=== PATIENT | male | born 1995 ===

== ENCOUNTER 2018-02-23 11:17 | Day surgery (SDC) | payer SELFPAY ==
[~2018-02-23] VITALS: Ht 167.6 cm; Wt 74.8 kg
[2018-02-23 11:42] LABS: BASOPHILS # (AUTO) 0.1 10^3/uL (0.0-0.1); BASOPHILS % (AUTO) 1 % (0-10); EOSINOPHILS # (AUTO) 0.2 10^3/uL (0.0-0.3); EOSINOPHILS % (AUTO) 2 % (0-10); HEMATOCRIT 42 % (40-54); HEMOGLOBIN 14.5 G/DL (13.3-17.7); LYMPHOCYTES # (AUTO) 1.9 X 10^3 (1.0-4.0); LYMPHOCYTES % (AUTO) 21 % (12-44); MEAN CORPUSCULAR HEMOGLOBIN 31 PG (25-34); MEAN CORPUSCULAR HGB CONC 35 G/DL (32-36); MEAN CORPUSCULAR VOLUME 89 FL (80-99); MEAN PLATELET VOLUME 10.1 FL (7.4-10.4); MONOCYTES # (AUTO) 0.9 X 10^3 (0.0-1.0); MONOCYTES % (AUTO) 10 % (0-12); NEUTROPHILS % (AUTO) 67 % (42-75); PLATELET COUNT 262 10^3/uL (130-400); RED BLOOD COUNT 4.67 10^6/uL (4.35-5.85); RED CELL DISTRIBUTION WIDTH 13.3 % (10.0-14.5); WHITE BLOOD COUNT 8.9 10^3/uL (4.3-11.0)
[2018-02-23] MEDS ORDERED: IOHEXOL 350 MG/ML 100 ML (OMNIPAQUE 350) VIAL IV ONE (11:45)
[2018-02-23] MEDS ORDERED: NS 250 ML (IVPB) BAG IV ONE (11:45)
[2018-02-23 12:07] LABS: ALANINE AMINOTRANSFERASE 113 U/L (0-55); ALBUMIN 4.3 GM/DL (3.2-4.5); ALKALINE PHOSPHATASE 63 U/L (40-136); AMYLASE 59 U/L (25-125); BILIRUBIN,TOTAL 0.4 MG/DL (0.1-1.0); BUN/CREATININE RATIO 14; CALCIUM 9.6 MG/DL (8.5-10.1); CARBON DIOXIDE 25 MMOL/L (21-32); CHLORIDE 103 MMOL/L (98-107); CREATININE SERUM 0.81 MG/DL (0.60-1.30); GFR ESTIMATED > 60; GLUCOSE 105 MG/DL (70-105); LIPASE 53 U/L (8-78); POTASSIUM 4.4 MMOL/L (3.6-5.0); SODIUM 138 MMOL/L (135-145); TOTAL PROTEIN 7.7 GM/DL (6.4-8.2)
--- NOTE | 2018-02-23 12:37 | ED Abdominal Pain ---
General Chief Complaint: Abdominal/GI Problems Stated Complaint: ABD PAIN Source of Information: Patient Exam Limitations: No Limitations History of Present Illness Date Seen by Provider: Feb 23, 2018 Time Seen by Provider: 11:25 Initial Comments Patient is a 23-year-old male who presents to the emergency room with complaints of epigastric abdominal pain that radiates to his right upper quadrant that started last night around 1700. He also reports nausea which he has taken Rolaids with minimal relief. He reports never having any symptoms like this before. He does not have a primary care provider is recently just moved here from [place]. Timing/Duration: 12-24 Hours Severity/Quality: Sharp Location: Epigastric Radiation: RUQ Activities at Onset: None Modifying Factors: Improves With Antacids Associated Symptoms: Denies Symptoms, Nausea/Vomiting Allergies and Home Medications Allergies Coded Allergies: No Allergy Information Available (Unverified , 02/23/18) Home Medications Oxycodone HCl/Acetaminophen 1 Each Tablet, 1 TAB PO Q4H PRN for PAIN-MODERATE Prescribed by: GEE CASTILLO on 02/23/18 0563 Patient Home Medication List Home Medication List Reviewed: Yes Review of Systems Review of Systems Constitutional: see HPI; No chills, No fever Gastrointestinal: See HPI, Abdominal Pain, Nausea All Other Systems Reviewed Negative Unless Noted: Yes Past Fwmmuil-Loyeyl-Usxkee Hx Past Med/Social Hx: Reviewed Nursing Past Med/Soc Hx Family Medical History Reviewed Nursing Family Hx Physical Exam Vital Signs Vital Signs - First Documented 02/23/18 11:23 Temp 98.5 Pulse 68 Resp 16 B/P (MAP) 136/94 (108) Pulse Ox 100 O2 Delivery Room Air Capillary Refill : Height/Weight/BMI Height: '" Weight: lbs. oz. kg; BMI Method: General Appearance: WD/WN, no apparent distress Neck: non-tender, full range of motion, supple, normal inspection Respiratory: chest non-tender, lungs clear, normal breath sounds, no respiratory distress, no accessory muscle use Cardiovascular: normal peripheral pulses, regular rate, rhythm, no edema, no gallop, no JVD, no murmur Gastrointestinal: normal bowel sounds, soft, no organomegaly, no pulsatile mass , tenderness (Epigastric tenderness and right upper and lower quadrant tenderness.) Neurologic/Psychiatric: alert, normal mood/affect, oriented x 3 Skin: normal color, warm/dry Progress/Results/Core Measures Results/Orders Lab Results Laboratory Tests Test 02/23/18 11:35 02/23/18 12:35 Range/Units White Blood Count 8.9 4.3-11.0 10^3/uL Red Blood Count 4.67 4.35-5.85 10^6/uL Hemoglobin 14.5 13.3-17.7 G/DL Hematocrit 42 40-54 % Mean Corpuscular Volume 89 80-99 FL Mean Corpuscular Hemoglobin 31 25-34 PG Mean Corpuscular Hemoglobin Concent 35 32-36 G/DL Red Cell Distribution Width 13.3 10.0-14.5 % Platelet Count 262 130-400 10^3/uL Mean Platelet Volume 10.1 7.4-10.4 FL Neutrophils (%) (Auto) 67 42-75 % Lymphocytes (%) (Auto) 21 12-44 % Monocytes (%) (Auto) 10 0-12 % Eosinophils (%) (Auto) 2 0-10 % Basophils (%) (Auto) 1 0-10 % Neutrophils # (Auto) 6.0 1.8-7.8 X 10^3 Lymphocytes # (Auto) 1.9 1.0-4.0 X 10^3 Monocytes # (Auto) 0.9 0.0-1.0 X 10^3 Eosinophils # (Auto) 0.2 0.0-0.3 10^3/uL Basophils # (Auto) 0.1 0.0-0.1 10^3/uL Sodium Level 138 135-145 MMOL/L Potassium Level 4.4 3.6-5.0 MMOL/L Chloride Level 103 98-107 MMOL/L Carbon Dioxide Level 25 21-32 MMOL/L Anion Gap 10 5-14 MMOL/L Blood Urea Nitrogen 11 7-18 MG/DL Creatinine 0.81 0.60-1.30 MG/DL Estimat Glomerular Filtration Rate > 60 BUN/Creatinine Ratio 14 Glucose Level 105 70-105 MG/DL Calcium Level 9.6 8.5-10.1 MG/DL Corrected Calcium 9.4 8.5-10.1 MG/DL Total Bilirubin 0.4 0.1-1.0 MG/DL Aspartate Amino Transf (AST/SGOT) 67 H 5-34 U/L Alanine Aminotransferase (ALT/SGPT) 113 H 0-55 U/L Alkaline Phosphatase 63 40-136 U/L Total Protein 7.7 6.4-8.2 GM/DL Albumin 4.3 3.2-4.5 GM/DL Amylase Level 59 25-125 U/L Lipase 53 8-78 U/L Urine Color YELLOW Urine Clarity CLEAR Urine pH 7 5-9 Urine Specific Harlan 1.005 L 1.016-1.022 Urine Protein NEGATIVE NEGATIVE Urine Glucose (UA) NEGATIVE NEGATIVE Urine Ketones NEGATIVE NEGATIVE Urine Nitrite NEGATIVE NEGATIVE Urine Bilirubin NEGATIVE NEGATIVE Urine Urobilinogen NORMAL NORMAL MG/DL Urine Leukocyte Esterase NEGATIVE NEGATIVE Urine RBC (Auto) NEGATIVE NEGATIVE Urine RBC NONE /HPF Urine WBC NONE /HPF Urine Squamous Epithelial Cells RARE /HPF Urine Crystals NONE /LPF Urine Bacteria NEGATIVE /HPF Urine Casts NONE /LPF Urine Mucus NEGATIVE /LPF Urine Culture Indicated NO My Orders Orders - ROYA DOS SANTOS Comprehensive Metabolic Panel (02/23/18 11:30) Lipase (02/23/18 11:30) Amylase (02/23/18 11:30) Ua Culture If Indicated (02/23/18 11:30) Saline Lock/Iv-Start (02/23/18 11:30) Cbc With Automated Diff (02/23/18 11:30) Ct Abdomen/Pelvis W (02/23/18 11:30) Iohexol Injection (Omnipaque 350 Mg/Ml 1 (02/23/18 11:45) Ns (Ivpb) (Sodium Chloride 0.9%) (02/23/18 11:45) Pharmacy Communication (Pharmacy Communi (02/23/18 11:39) Lactated Ringers (Lr 1000 Ml Iv Solution (02/23/18 13:24) Bupivacaine 0.5% W/Epi Inj (Sensorcaine (02/23/18 13:26) Medications Given in ED Current Medications Medications Dose Ordered Sig/William Route Start Time Stop Time Status Last Admin Dose Admin Bupivacaine HCl/ Epinephrine Bitart 30 ml STK-MED ONCE .ROUTE 02/23/18 13:26 02/23/18 13:31 DC 02/23/18 14:39 30 ML Lactated Ringer's 1,000 ml @ ud STK-MED ONCE IV 02/23/18 13:24 02/23/18 13:30 DC 02/23/18 13:35 0 MLS/HR Vital Signs/I&O 10/8/18 11:23 Temp 98.5 Pulse 68 Resp 16 B/P (MAP) 136/94 (108) Pulse Ox 100 O2 Delivery Room Air Progress Progress Note : Time: 13:01 Progress Note I have seen and evaluated the patient. I've informed him of his CT findings. I have spoke to Dr. Castillo at this time and she agrees to take the patient to OR for acute appendicitis. Diagnostic Imaging Diagonstic Imaging: CT Plain Films/CT/US/NM/MRI: abdomen, pelvis Comments VIA [place], [place] NAME: TERE CLAYTON [facility] REC#: [id number] PT STATUS: REG ER : 1995 PHYSICIAN: ROYA DOS SANTOS ADMIT DATE: 02/23/18/ER Draft Date of Exam:02/23/18 CT ABDOMEN/PELVIS W PROCEDURE: CT abdomen and pelvis with contrast. TECHNIQUE: Multiple contiguous axial images were obtained through the abdomen and pelvis after administration of intravenous contrast. INDICATION: Abdominal pain and nausea. FINDINGS: There may be a small hiatal hernia. Low density is seen in the liver suggesting possible fatty infiltration. No focal hepatic or splenic abnormality is identified. Gallbladder and pancreas are also unremarkable. There is an approximately 1 cm low-density nodule in the right adrenal gland, which may represent adrenal gland adenoma. The kidneys have a normal appearance. There is no free fluid within the abdomen or pelvis. There is edema and/or inflammation surrounding the appendix. There is also diffuse mural thickening involving the urinary bladder. No organized fluid collection is seen to indicate abscess. There is no evidence of pneumoperitoneum. IMPRESSION: Findings are consistent with acute appendicitis in the right lower quadrant without periappendiceal abscess. Additional incidental findings include small hiatal hernia, probable fatty infiltration of the liver, and right adrenal gland adenoma. Dictated on workstation # [id number] Dict: 02/23/18 1246 Trans: 02/23/18 1250 [id number] Interpreted by: SUDEEP FU MD Electronically signed by: Departure Communication (Admissions) Time/Spoke to Admitting Phy: 13:02 Dr. Castillo. Impression Primary Impression: Acute appendicitis Disposition: ADMITTED INPATIENT Condition: Stable/Unchanged Admissions Decision to Admit Reason: Admit from ER (General) Decision to Admit/Date: Feb 23, 2018 Time/Decision to Admit Time: 13:03 Departure-Patient Inst. Referrals: UNKNOWN (PCP) Primary Care Physician Scripts Oxycodone HCl/Acetaminophen (Percocet 5-325 mg Tablet) 1 Each Tablet 1 TAB PO Q4H PRN for PAIN-MODERATE MDD 6, #30 TAB Prov: GEE CASTILLO MD 02/23/18 ROYA DOS SANTOS Feb 23, 2018 12:37
[2018-02-23 12:48] LABS: BILIRUBIN,URINE NEGATIVE (NEGATIVE); CLARITY,URINE CLEAR; COLOR,URINE YELLOW; GLUCOSE, URINE (UA) NEGATIVE (NEGATIVE); KETONES,URINE NEGATIVE (NEGATIVE); LEUKOCYTE ESTERASE ,URINE NEGATIVE (NEGATIVE); NITRITE,URINE NEGATIVE (NEGATIVE); PH,URINE 7 (5-9); PROTEIN,URINE NEGATIVE (NEGATIVE); UROBILINOGEN,URINE NORMAL (NORMAL)
--- NOTE | 2018-02-23 12:51 | Diagnostic Imaging Report ---
PROCEDURE: CT abdomen and pelvis with contrast. TECHNIQUE: Multiple contiguous axial images were obtained through the abdomen and pelvis after administration of intravenous contrast. INDICATION: Abdominal pain and nausea. FINDINGS: There may be a small hiatal hernia. Low density is seen in the liver suggesting possible fatty infiltration. No focal hepatic or splenic abnormality is identified. Gallbladder and pancreas are also unremarkable. There is an approximately 1 cm low-density nodule in the right adrenal gland, which may represent adrenal gland adenoma. The kidneys have a normal appearance. There is no free fluid within the abdomen or pelvis. There is edema and/or inflammation surrounding the appendix. There is also diffuse mural thickening involving the urinary bladder. No organized fluid collection is seen to indicate abscess. There is no evidence of pneumoperitoneum. IMPRESSION: Findings are consistent with acute appendicitis in the right lower quadrant without periappendiceal abscess. Additional incidental findings include small hiatal hernia, probable fatty infiltration of the liver, and right adrenal gland adenoma. Dictated by: Dictated on workstation # [id number]
[2018-02-23 13:13] LABS: BACTERIA,URINE NEGATIVE /HPF; SQUAMOUS EPITHELIAL CELL,UR RARE /HPF
[2018-02-23] MEDS ORDERED: LACTATED RINGERS 1,000 ML IV ONE (13:24)
[2018-02-23] MEDS ORDERED: BUP/EPI 0.5% 1:200,000 (SENSORCAINE) 30 ML VIAL ONE (13:26)
[2018-02-23] MEDS ORDERED: MIDAZOLAM 2 MG/2 ML (VERSED) VIAL ONE (14:17)
[2018-02-23] MEDS ORDERED: fentaNYL INJECTION 100 MCG/2 ML AMP ONE ×2 (14:19→15:21)
[2018-02-23] MEDS ORDERED: metroNIDAZOLE 500MG/100ML IVPB 100 ML ONE (14:28)
[2018-02-23] MEDS ORDERED: ceFAZolin 1,000 MG/10 ML (ANCEF) VIAL ONE (14:28)
[2018-02-23] MEDS ORDERED: ceFAZolin INJECTION 1,000 MG in NS (IVPB) 50 ML IV ONE (14:30)
[2018-02-23] MEDS ORDERED: metroNIDAZOLE 500MG/100ML IVPB 100 ML IV ONE (14:30)
--- NOTE | 2018-02-23 14:36 | History & Physicial ---
History of Present Illness History of Present Illness Reason for visit/HPI Central abdominal pain localizing to the right lower quadrant over a 24-hour period. Clinical examination and CT have confirmed acute appendicitis Date of Admission 02/23/18 Date Seen by a Provider: Feb 23, 2018 Time Seen by a Provider: 13:20 I consulted on this patient on 02/23/18 14:34 Attending Physician Gee Castillo MD Admitting Physician No,Local Physician Consult Allergies and Home Medications Allergies Coded Allergies: No Allergy Information Available (Unverified , 02/23/18) Patient Home Medication List Home Medication List Reviewed: Yes Past Jlaexqa-Ssptzg-Jrywoi Hx Patient Social History Marrital Status: single Employed/Student: unemployed Alcohol Use: Denies Use Recreational Drug Use: Yes (THC) Smoking Status: Current Everyday Smoker Type Used: Cigarettes 2nd Hand Smoke Exposure: Yes Recent Foreign Travel: No Contact w/other who traveled: No Recent Infectious Disease Expo: No Surgeries No Respiratory No Cardiovascular No Neurological No Reproductive System Hx Reproductive Disorders: No Gastrointestinal No Musculoskeletal No Endocrine History of Endocrine Disorders: No HEENT History of HEENT Disorders: No Review of Systems Constitutional: malaise EENTM: no symptoms reported Respiratory: no symptoms reported Cardiovascular: no symptoms reported Gastrointestinal: see HPI Genitourinary: no symptoms reported Musculoskeletal: no symptoms reported Skin: no symptoms reported Psychiatric/Neurological: No Symptoms Reported Physical Exam Vital Signs Vital Signs - First Documented 02/23/18 11:23 Temp 98.5 Pulse 68 Resp 16 B/P (MAP) 136/94 (108) Pulse Ox 100 O2 Delivery Room Air Capillary Refill : Less Than 3 Seconds Height, Weight, BMI Height: 5'6.00" Weight: 165lbs. oz. 74.218415ng; BMI Method:Stated General Appearance: Anxious Neck: Full Range of Motion Respiratory: Lungs Clear Cardiovascular: Regular Rate, Rhythm Gastrointestinal: Tenderness Extremity: Normal Inspection Neurologic/Psychiatric: Oriented x3 Skin: Warm/Dry Comments Severe tenderness over the right lower quadrant consistent with acute appendicitis Assessment/Plan Assessment and Plan Young man with acute appendicitis. Offered laparoscopic appendectomy and review the procedure in detail Admission Diagnosis Admission Status: Other (Outpt Proc) GEE CASTILLO MD Feb 23, 2018 14:36
--- NOTE | 2018-02-23 14:37 | Progress Note-Pre Operative ---
Pre-Operative Progress Note H&P Reviewed The H&P was reviewed, patient examined and no changes noted. Date Seen by Provider: Feb 23, 2018 Time Seen by Provider: 13:20 Date H&P Reviewed: Feb 23, 2018 Time H&P Reviewed: 14:37 Pre-Operative Diagnosis: Acute appendicitis GEE CASTILLO MD Feb 23, 2018 14:37
[2018-02-23] MEDS ORDERED: LACTATED RINGERS 1,000 ML IV PRN (15:19)
[2018-02-23] MEDS ORDERED: ROCURONIUM 10 MG/ML 5 ML SYRINGE IV ONE (15:20)
[2018-02-23] MEDS ORDERED: LIDOCAINE PF 2% 2 ML (XYLOCAINE) VIAL ONE (15:20)
[2018-02-23] MEDS ORDERED: SEVOFLURANE (ULTANE) 15 ML INHAL SOLN ONE (15:20)
[2018-02-23] MEDS ORDERED: proPOfol 200 MG/20 ML (DIPRIVAN) VIAL IV ONE (15:20)
[2018-02-23] MEDS ORDERED: GLYCOPYRROLATE 0.2 MG/ML (ROBINUL) 2 ML VIAL ONE (15:20)
[2018-02-23] MEDS ORDERED: NEOSTIGMINE 1 MG/ML 5 ML SYRINGE ONE (15:20)
[2018-02-23] MEDS ORDERED: OXYC1TAB87 PO (15:33)
--- NOTE | 2018-02-23 15:33 | Operative Report ---
Operative Report Date of Procedure/Surgery Feb 23, 2018 Surgeon (s) GEE CASTILLO MD Cans Vacuum Tester (s): Jony Juarez (Med Student III) Post-Operative Diagnosis Acute retrocecal appendicitis Procedure Performed Laparoscopic appendectomy Description of Procedure Anesthesia Type: General Estimated blood loss (mL): Minimal Specimen(s) collected/removed Appendix Description of the Procedure Indication for the procedure: This gentleman presented with clinical and radiologic features of acute appendicitis. He was offered prompt laparoscopic appendectomy. Informed consent was obtained after reviewing the operative details and complications of wound infection and intra-abdominal abscess. Description of procedure: He was placed supine on the operative table and general anesthesia induced. A gram of Ancef and 500 mg of Flagyl were administered intravenously as prophylaxis against wound infection. Sequential compression devices were placed around his legs, to minimize the risk of venous thrombosis. Abdomen was prepared and draped in the usual sterile manner. A supraumbilical incision was made and the linea alba incised vertically. A Acevedo cannula was placed and carbon dioxide insufflated, to an intra-abdominal pressure of 15 mmHg. Anatomy was visualized using a 30 laparoscope. Omentum was wrapped around the right lower quadrant, obscuring the appendix initially. Under direct view, I placed a 5 mm trocar over the right upper quadrant, followed by a 12 mm trocar over the left lower quadrant. The patient was then turned into Trendelenburg position, with the right side tilted up. Ileocecal junction was mobilized using Harmonic scalpel, displaying an acutely inflamed and elongated appendix in a retrocecal position. Meso- appendix was controlled using Harmonic scalpel and appendectomy completed using an Endo RIANNA, 2.5 mm vascular stapler. The area was then irrigated with saline and the appendix placed in Endo Catch bag, being removed via the supraumbilical trocar site. The fascia over this incision and one over the left lower quadrant were closed using #1 Vicryl. Skin incisions were closed using 4-0 Vicryl, in a similar fashion. He tolerated procedure well, was extubated in the operative room and taken to the recovery room in a stable condition. Findings of the Procedure see op report Allergies and Home Medications Allergies Coded Allergies: No Allergy Information Available (Unverified , 02/23/18) Patient Home Medication List Home Medication List Reviewed: Yes GEE CASTILLO MD Feb 23, 2018 15:33
--- NOTE | 2018-02-23 15:34 | Discharge Inst-Simple/Standard ---
Discharge Inst-Standard Discharge Medications New, Converted or Re-Newed RX: RX on Chart Patient Instructions/Follow Up Plan of Care/Instructions/FU: Band-Aids off in 48 hours. Follow-up in a week Activity as Tolerated: Yes Discharge Diet: No Restrictions GEE CASTILLO MD Feb 23, 2018 15:34
[2018-02-23] MEDS ORDERED: morphine INJ 10 MG/ML 1ML (SYR OR VIAL) ONE (15:59)
[2018-02-23] MEDS ORDERED: ONDANSETRON 4 MG/2 ML (SDV) Z0FRAN IVP PRN (16:00)
[2018-02-23] MEDS ORDERED: HYDROmorphone 2 MG/ML VIAL (DILAUDID) IV ONE (16:00)
[2018-02-23] MEDS ORDERED: morphine INJ 10 MG/ML 1ML (SYR OR VIAL) IVP ONE (16:00)
[2018-02-23 16:55] VITALS: BP 144/85
--- NOTE | 2018-02-23 17:41 | Anesthesia-General Post-Op ---
General Patient Condition Mental Status/LOC: Same as Preop Cardiovascular: Satisfactory Nausea/Vomiting: Absent Respiratory: Satisfactory Pain: Controlled Complications: Absent Post Op Complications Complications None Follow Up Care/Instructions Patient Instructions None needed. Anesthesia/Patient Condition Patient Condition Patient is doing well, no complaints, stable vital signs, no apparent adverse anesthesia problems. No complications reported per nursing. FAHAD THOMPSON CRNA Feb 23, 2018 17:41
[2018-02-23 17:45] VITALS: BP 155/91
[2018-02-23] MEDS ORDERED: oxyCODONE/APAP 5/325MG (PERCOCET 5) TABLET PO PRN (17:45)
[2018-02-23 18:30] VITALS: BP 137/87
[2018-02-23 18:55] VITALS: BP 137/87
== END 2018-02-23 18:55 | disposition home or self-care (01) ==
LOC: ER 11:19 → SDC 13:37
PROVIDERS: ATTEND Surgery
DX: K35.80 Unspecified acute appendicitis (principal); F17.210 Nicotine dependence, cigarettes, uncomplicated
CPT/HCPCS: 36415; 74177; 80053; 81000; 82150; 83690; 85025; 94664

== ENCOUNTER 2018-04-08 19:40 | Emergency (ER) | payer SELFPAY ==
[~2018-04-08] VITALS: Ht 170.2 cm; Wt 83.9 kg
[~2018-04-08 19:40] MED LIST: OXYC1TAB87 PO
[2018-04-08] MEDS: ACETAMINOPHEN 500 MG TAB (TYLENOL) PO ONE (20:13)
[2018-04-08 20:14] LABS: BASOPHILS % (AUTO) 0 % (0-10); EOSINOPHILS % (AUTO) 0 % (0-10); HEMATOCRIT 39 % (40-54); HEMOGLOBIN 13.6 G/DL (13.3-17.7); LYMPHOCYTES # (AUTO) 1.1 X 10^3 (1.0-4.0); LYMPHOCYTES % (AUTO) 6 % (12-44); MEAN CORPUSCULAR HEMOGLOBIN 30 PG (25-34); MEAN CORPUSCULAR HGB CONC 35 G/DL (32-36); MEAN CORPUSCULAR VOLUME 87 FL (80-99); MEAN PLATELET VOLUME 9.4 FL (7.4-10.4); MONOCYTES # (AUTO) 0.8 X 10^3 (0.0-1.0); MONOCYTES % (AUTO) 4 % (0-12); NEUTROPHILS # (AUTO) 17.4 X 10^3 (1.8-7.8); NEUTROPHILS % (AUTO) 90 % (42-75); PLATELET COUNT 315 10^3/uL (130-400); RED BLOOD COUNT 4.52 10^6/uL (4.35-5.85); RED CELL DISTRIBUTION WIDTH 12.9 % (10.0-14.5); WHITE BLOOD COUNT 19.3 10^3/uL (4.3-11.0)
[2018-04-08] MEDS: NS IV 1000 ML 1,000 ML IV SCH (20:15)
[2018-04-08] MEDS: IBUPROFEN 800 MG (MOTRIN) TAB PO ONE (20:15)
--- NOTE | 2018-04-08 20:23 | Diagnostic Imaging Report ---
INDICATION: Fever and shortness of air. EXAMINATION: Single-view chest dated 04/08/2018. FINDINGS: The cardiomediastinal silhouette is unremarkable. The pulmonary vasculature is within normal limits. The lungs and pleural spaces are clear. IMPRESSION: No evidence of an acute cardiopulmonary process. Dictated by: Dictated on workstation # [id number]
[2018-04-08 20:33] LABS: BAND NEUTROPHILS 12 %; BASOPHILS % (MANUAL) 0 %; EOSINOPHILS % (MANUAL) 0 %; LYMPHOCYTES % (MANUAL) 9 %; MONOCYTES % (MANUAL) 7 %; NEUTROPHILS % (MANUAL) 72 %
[2018-04-08 20:34] LABS: RBC MORPH NORMAL
[2018-04-08 20:47] LABS: BILIRUBIN,URINE NEGATIVE (NEGATIVE); CLARITY,URINE CLEAR; COLOR,URINE YELLOW; GLUCOSE, URINE (UA) NEGATIVE (NEGATIVE); KETONES,URINE NEGATIVE (NEGATIVE); LEUKOCYTE ESTERASE ,URINE NEGATIVE (NEGATIVE); NITRITE,URINE NEGATIVE (NEGATIVE); PH,URINE 8 (5-9); PROTEIN,URINE NEGATIVE (NEGATIVE); UROBILINOGEN,URINE NORMAL (NORMAL)
[2018-04-08 20:50] LABS: ALANINE AMINOTRANSFERASE 34 U/L (0-55); ALBUMIN 4.3 GM/DL (3.2-4.5); ALKALINE PHOSPHATASE 73 U/L (40-136); BILIRUBIN,TOTAL 0.6 MG/DL (0.1-1.0); BUN/CREATININE RATIO 12; CALCIUM 9.4 MG/DL (8.5-10.1); CARBON DIOXIDE 23 MMOL/L (21-32); CHLORIDE 103 MMOL/L (98-107); GFR ESTIMATED > 60; GLUCOSE 120 MG/DL (70-105); POTASSIUM 3.9 MMOL/L (3.6-5.0); SODIUM 139 MMOL/L (135-145); TOTAL PROTEIN 7.4 GM/DL (6.4-8.2)
[2018-04-08 20:55] LABS: SQUAMOUS EPITHELIAL CELL,UR RARE /HPF
[2018-04-08] MEDS ORDERED: AZIT250T PO (21:20)
[2018-04-08] MEDS ORDERED: LEVO500T2 PO (21:20)
--- NOTE | 2018-04-08 21:21 | ED General ---
General Chief Complaint: General Problems/Pain Stated Complaint: FEVER,SOB Nursing Triage Note: pt states he began to develope a non productive cough and chills this afternoon at work. presents to the ED ambulatory, running a low grade fever of 100.5 Nursing Sepsis Screen: Possible Sepsis Risk Source of Information: Patient Exam Limitations: No Limitations History of Present Illness Date Seen by Provider: Apr 08, 2018 Time Seen by Provider: 20:10 Initial Comments Patient is a 23-year-old male who presents to the emergency room with complaints of a nonproductive cough and chills that started this evening while at work. He also reports mild shortness of breath he does have a low-grade fever on arrival to the emergency room 100.5. Timing/Duration: 1-3 Hours Associated Systoms: Cough, Fever/Chills, Shortness of Air Allergies and Home Medications Allergies Coded Allergies: No Allergy Information Available (Unverified , 02/23/18) Home Medications Azithromycin 250 Mg Tablet, 250 MG PO UD TAKE 2 TABLETS TODAY, THEN TAKE 1 TABLET DAILY FOR 4 MORE DAYS Prescribed by: ROYA DOS SANTOS on 04/08/182119 Levofloxacin 500 Mg Tablet, 500 MG PO DAILY Prescribed by: ROYA DOS SANTOS on 04/08/182119 Oxycodone HCl/Acetaminophen 1 Each Tablet, 1 TAB PO Q4H PRN for PAIN-MODERATE Prescribed by: GEE CASTILLO on 02/23/18 1533 Patient Home Medication List Home Medication List Reviewed: Yes Review of Systems Review of Systems Constitutional: see HPI, chills, fever Respiratory: see HPI, cough, short of breath All Other Systems Reviewed Negative Unless Noted: Yes Past Jhyyaam-Jxbvch-Xfyyek Hx Patient Social History Type Used: Cigarettes 2nd Hand Smoke Exposure: Yes Recent Foreign Travel: No Contact w/Someone Who Travel: No Recent Infectious Disease Expo: No Recent Hopitalizations: Yes (APPENDECTOMY IN FEB OF THIS YEAR) Past Medical History Surgeries: No Appendectomy Respiratory: No Cardiac: No Neurological: No Reproductive Disorders: No Genitourinary: No Gastrointestinal: No Musculoskeletal: No Endocrine: No HEENT: No Cancer: No Psychosocial: No Integumentary: No Physical Exam Vital Signs Vital Signs - First Documented 04/08/18 19:49 Temp 100.5 Pulse 97 Resp 20 B/P (MAP) 137/73 (94) Pulse Ox 98 O2 Delivery Room Air Capillary Refill : Less Than 3 Seconds Height, Weight, BMI Height: 5'7.00" Weight: 185lbs. oz. 83.217936ix; BMI Method:Stated General Appearance: No Apparent Distress, WD/WN Eyes: Bilateral Eye Normal Inspection, Bilateral Eye PERRL, Bilateral Eye EOMI HEENT: PERRL/EOMI, TMs Normal, Normal ENT Inspection, Pharynx Normal Neck: Full Range of Motion, Normal Inspection, Non Tender, Supple, Other (no nuchal rigidity) Respiratory: Chest Non Tender, Lungs Clear, Normal Breath Sounds, No Accessory Muscle Use, No Respiratory Distress Cardiovascular: Regular Rate, Rhythm, No Edema, No Gallop, No JVD, No Murmur, Normal Peripheral Pulses Gastrointestinal: Normal Bowel Sounds, No Organomegaly, No Pulsatile Mass, Non Tender, Soft Extremity: Normal Capillary Refill, Normal Inspection, Normal Range of Motion, Non Tender, No Calf Tenderness, No Pedal Edema Neurologic/Psychiatric: Alert, Oriented x3, Normal Mood/Affect Skin: Normal Color, Warm/Dry Focused Exam Lactate Level 04/08/18 19:59: Lactic Acid Level 1.47 Lactic Acid Level Laboratory Tests Test 04/08/18 19:59 Lactic Acid Level 1.47 MMOL/L (0.50-2.00) Progress/Results/Core Measures Suspected Sepsis Recent Fever Within 48 Hours: Yes Infection Criteria Present: Suspected New Infection New/Unexplained Altered Menta: No Sepsis Screen: Possible Sepsis Risk SIRS Temperature:100.5 Pulse: 103 Respiratory Rate: 20 Laboratory Tests 04/08/18 19:59: White Blood Count 19.3H Blood Pressure 121 /74 Mean: 90 04/08/18 19:59: Lactic Acid Level 1.47 Laboratory Tests 04/08/18 19:59: Creatinine 0.90, Platelet Count 315, Total Bilirubin 0.6 Results/Orders Lab Results Laboratory Tests Test 04/08/18 19:49 04/08/18 19:57 04/08/18 19:59 04/08/18 20:48 Range/Units Urine Color YELLOW Urine Clarity CLEAR Urine pH 8 5-9 Urine Specific [place] 1.010 L 1.016-1.022 Urine Protein NEGATIVE NEGATIVE Urine Glucose (UA) NEGATIVE NEGATIVE Urine Ketones NEGATIVE NEGATIVE Urine Nitrite NEGATIVE NEGATIVE Urine Bilirubin NEGATIVE NEGATIVE Urine Urobilinogen NORMAL NORMAL MG/DL Urine Leukocyte Esterase NEGATIVE NEGATIVE Urine RBC (Auto) NEGATIVE NEGATIVE Urine RBC NONE /HPF Urine WBC NONE /HPF Urine Squamous Epithelial Cells RARE /HPF Urine Crystals NONE /LPF Urine Bacteria NONE /HPF Urine Casts NONE /LPF Urine Mucus NEGATIVE /LPF Urine Culture Indicated NO Monoscreen NEGATIVE NEGATIVE White Blood Count 19.3 H 4.3-11.0 10^3/uL Red Blood Count 4.52 4.35-5.85 10^6/uL Hemoglobin 13.6 13.3-17.7 G/DL Hematocrit 39 L 40-54 % Mean Corpuscular Volume 87 80-99 FL Mean Corpuscular Hemoglobin 30 25-34 PG Mean Corpuscular Hemoglobin Concent 35 32-36 G/DL Red Cell Distribution Width 12.9 10.0-14.5 % Platelet Count 315 130-400 10^3/uL Mean Platelet Volume 9.4 7.4-10.4 FL Neutrophils (%) (Auto) 90 H 42-75 % Lymphocytes (%) (Auto) 6 L 12-44 % Monocytes (%) (Auto) 4 0-12 % Eosinophils (%) (Auto) 0 0-10 % Basophils (%) (Auto) 0 0-10 % Neutrophils # (Auto) 17.4 H 1.8-7.8 X 10^3 Lymphocytes # (Auto) 1.1 1.0-4.0 X 10^3 Monocytes # (Auto) 0.8 0.0-1.0 X 10^3 Eosinophils # (Auto) 0.0 0.0-0.3 10^3/uL Basophils # (Auto) 0.0 0.0-0.1 10^3/uL Neutrophils % (Manual) 72 % Lymphocytes % (Manual) 9 % Monocytes % (Manual) 7 % Eosinophils % (Manual) 0 % Basophils % (Manual) 0 % Band Neutrophils 12 % Blood Morphology Comment NORMAL Sodium Level 139 135-145 MMOL/L Potassium Level 3.9 3.6-5.0 MMOL/L Chloride Level 103 98-107 MMOL/L Carbon Dioxide Level 23 21-32 MMOL/L Anion Gap 13 5-14 MMOL/L Blood Urea Nitrogen 11 7-18 MG/DL Creatinine 0.90 0.60-1.30 MG/DL Estimat Glomerular Filtration Rate > 60 BUN/Creatinine Ratio 12 Glucose Level 120 H 70-105 MG/DL Lactic Acid Level 1.47 0.50-2.00 MMOL/L Calcium Level 9.4 8.5-10.1 MG/DL Corrected Calcium 9.2 8.5-10.1 MG/DL Total Bilirubin 0.6 0.1-1.0 MG/DL Aspartate Amino Transf (AST/SGOT) 32 5-34 U/L Alanine Aminotransferase (ALT/SGPT) 34 0-55 U/L Alkaline Phosphatase 73 40-136 U/L Total Protein 7.4 6.4-8.2 GM/DL Albumin 4.3 3.2-4.5 GM/DL Group A Streptococcus Screen NEGATIVE NEGATIVE Micro Results Microbiology 04/08/18 Influenza Types A,B Antigen ([facility]) - Final, Complete My Orders Orders - ROYA DOS SANTOS Iv 1000 Ml (Sodium Chloride 0.9%) (04/08/18 20:15) Ibuprofen Tablet (Motrin Tablet) (04/08/18 20:15) Acetaminophen Tablet (Tylenol Tablet) (04/08/18 20:15) Influenza A And B Antigens (04/08/18 20:01) Cbc With Automated Diff (04/08/18 20:01) Comprehensive Metabolic Panel (04/08/18 20:01) Chest 1 View, Ap/Pa Only (04/08/18 20:01) Manual Differential (04/08/18 19:59) Blood Culture (04/08/18 20:23) Lactic Acid Analyzer (04/08/18 20:23) Ua Culture If Indicated (04/08/18 20:32) Monotest (04/08/18 20:33) Rapid Strep A Screen (04/08/18 20:42) Ceftriaxone For Iv Use (Rocephin For I (04/08/18 21:15) Rx-Levofloxacin (Rx-Levaquin) (04/08/18 21:13) Medications Given in ED Current Medications Medications Dose Ordered Sig/William Route Start Time Stop Time Status Last Admin Dose Admin Acetaminophen 1,000 mg ONCE ONCE PO 04/08/18 20:15 04/08/18 20:16 DC 04/08/18 20:13 1,000 MG Ceftriaxone Sodium 1000 mg/ Sodium Chloride 50 ml @ 100 mls/hr ONCE ONCE IV 04/08/18 21:15 04/08/18 21:44 DC 04/08/18 21:23 100 MLS/HR Ibuprofen 800 mg ONCE ONCE PO 04/08/18 20:15 04/08/18 20:16 DC 04/08/18 20:15 800 MG Vital Signs/I&O 04/08/18 04/08/18 04/08/18 19:49 20:13 20:30 Temp 100.5 100.5 100.5 Pulse 97 103 Resp 20 20 B/P (MAP) 137/73 (94) 121/74 Pulse Ox 98 98 O2 Delivery Room Air Room Air Capillary Refill : Less Than 3 Seconds Blood Pressure Mean: 90 Progress Note : Time: 21:25 Progress Note I have discussed the case with Dr. Bean [place] and they agree with plan of care. The patient is feeling much better after Tylenol and ibuprofen administration and IV fluids. His pain has resolved. His fever has broken. The patient reports that he has low income will not be able to afford his medications very well. I will put him on Levaquin as we have an Rx take home pack available and all pharmacies will be closed tomorrow for the holiday. I will be giving him a dose of IV Rocephin here. And then to start a Z-Jarad on Friday when the pharmacies reopen. Patient agrees with plan of care, plans for discharge, return precautions were given. Diagnostic Imaging Diagonstic Imaging: Xray Plain Films/CT/US/NM/MRI: chest Comments NAME: TERE CLAYTON MED REC#: [id number] PT STATUS: REG ER : 1995 PHYSICIAN: ROYA DOS SANTOS ADMIT DATE: 04/08/18/ER Signed Date of Exam: 04/08/18 CHEST 1 VIEW, AP/PA ONLY INDICATION: Fever and shortness of air. EXAMINATION: Single-view chest dated 04/08/2018. FINDINGS: The cardiomediastinal silhouette is unremarkable. The pulmonary vasculature is within normal limits. The lungs and pleural spaces are clear. IMPRESSION: No evidence of an acute cardiopulmonary process. Dictated by: Dictated on workstation # [id number] Dict: 04/08/182018 Trans: 04/08/182055 Interpreted by: SCOTT SHOEMAKER MD Electronically signed by: SCOTT SHOEMAKER MD 04/08/182055 Departure Impression Primary Impression: Community acquired pneumonia Disposition: 01 HOME, SELF-CARE Condition: Stable/Unchanged Departure-Patient Inst. Decision time for Depature: 21:18 Referrals: NO,LOCAL PHYSICIAN (PCP/Family) Primary Care Physician Patient Instructions: Community-Acquired Pneumonia in Adults, LOCAL PHYSICIAN LIST Add. Discharge Instructions: Take medications as directed. Ibuprofen and Tylenol as directed by the bottle for pain and fever relief. Return back to the emergency room for any worsening symptoms or concerns as needed. Follow-up with a primary care provider within 1 week for recheck. All discharge instructions reviewed with patient and/or family. Voiced understanding. Scripts Azithromycin (Zithromax) 250 Mg Tablet 250 MG PO UD, #6 TAB TAKE 2 TABLETS TODAY, THEN TAKE 1 TABLET DAILY FOR 4 MORE DAYS Prov: ROYA DOS SANTOS 04/08/18 Levofloxacin (Levaquin) 500 Mg Tablet 500 MG PO DAILY for 6 Days, #6 TAB Prov: ROYA DOS SANTOS 04/08/18 ROYA DOS SANTOS Apr 08, 2018 21:21
[2018-04-08] MEDS: cefTRIAXone FOR IV USE 1,000 MG in NS (IVPB) 50 ML IV ONE (21:23)
[2018-04-08 21:52] VITALS: BP 121/74
[2018-04-08] MEDS: RX-LEVOFLOXACIN 500 MG (LEVAQUIN) TAB #1 PPK PO STA (21:52)
== END 2018-04-08 21:52 | disposition home or self-care (01) ==
LOC: EDUNIT# 19:40 → ER 19:41
DX: J18.9 Pneumonia, unspecified organism (principal); Z77.22 Contact with and (suspected) exposure to environmental tobacco smoke (acute) (chronic); Z90.49 Acquired absence of other specified parts of digestive tract
CPT/HCPCS: 36415; 71045; 80053; 81000; 83605; 85007; 85027; 86308; 87040; 87430; 87804

== ENCOUNTER 2018-04-17 21:07 | Emergency (ER) | payer SELFPAY ==
[~2018-04-17 21:07] MED LIST changes: +AZIT250T PO; +LEVO500T2 PO
[2018-04-18] MEDS ORDERED: CYCL10TA9 PO (05:24)
[2018-04-18] MEDS ORDERED: NAPR-1071 PO (05:24)
== END 2018-04-17 22:09 | disposition left against medical advice (07) ==
LOC: EDUNIT# 21:07 → ER 21:09
DX: S89.92XA Unspecified injury of left lower leg, initial encounter (principal); V89.2XXA Person injured in unspecified motor-vehicle accident, traffic, initial encounter

== ENCOUNTER 2018-04-18 04:23 | Emergency (ER) | payer SELFPAY ==
[~2018-04-18] VITALS: Ht 170.2 cm; Wt 81.6 kg
[2018-04-18] MEDS ORDERED: NAPROXEN 250 MG (NAPROSYN) TABLET PO STA (04:59)
[2018-04-18] MEDS ORDERED: HYDROcodone/APAP 7.5 MG/325 MG (LORTAB, LORCET PLUS) TABLET PO STA (04:59)
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
[2018-04-18] MEDS ORDERED: CYCL10TA9 PO (05:24)
[2018-04-18] MEDS ORDERED: NAPR-1071 PO (05:24)
[2018-04-18 05:33] VITALS: BP 123/72
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
== END 2018-04-18 05:33 | disposition home or self-care (01) ==
LOC: EDUNIT# 04:23 → ER 04:25
DX: S70.12XA Contusion of left thigh, initial encounter (principal); R40.2142 Coma scale, eyes open, spontaneous, at arrival to emergency department; R40.2252 Coma scale, best verbal response, oriented, at arrival to emergency department; R40.2362 Coma scale, best motor response, obeys commands, at arrival to emergency department; Z77.22 Contact with and (suspected) exposure to environmental tobacco smoke (acute) (chronic); Z90.49 Acquired absence of other specified parts of digestive tract; V48.6XXA Car passenger injured in noncollision transport accident in traffic accident, initial encounter; Y92.410 Unspecified street and highway as the place of occurrence of the external cause
CPT/HCPCS: 73552

== ENCOUNTER 2018-10-05 20:07 | Emergency (ER) | payer SELFPAY ==
[~2018-10-05] VITALS: Ht 170.2 cm; Wt 83.9 kg
[~2018-10-05 20:07] MED LIST changes: +CYCL10TA9 PO; +NAPR-1071 PO
[2018-10-05 20:35] LABS: BILIRUBIN,URINE NEGATIVE (NEGATIVE); CLARITY,URINE VERY CLOUDY; COLOR,URINE YELLOW; GLUCOSE, URINE (UA) NEGATIVE (NEGATIVE); KETONES,URINE NEGATIVE (NEGATIVE); LEUKOCYTE ESTERASE ,URINE 3+ (NEGATIVE); NITRITE,URINE NEGATIVE (NEGATIVE); PH,URINE 7 (5-9); PROTEIN,URINE 2+ (NEGATIVE); UROBILINOGEN,URINE NORMAL (NORMAL)
[2018-10-05] MEDS ORDERED: DOXY100T2 PO (20:37)
--- NOTE | 2018-10-05 20:37 | ED GU-Male ---
General Stated Complaint: BURNING PAIN WHILE URINATING Source: patient Exam Limitations: no limitations History of Present Illness Date Seen by Provider: October 05, 2018 Time Seen by Provider: 20:34 Initial Comments To ER with c/o 6 days of burning with urination, urinary frequency, greenish yellow penile discharge. No other symptoms. is sexually active. Timing/Duration: week Severity/Quality: moderate Radiation: none Activities at Onset: none Prior Genitourinary Problems: none Sexual [place] History: other (active) Associated Symptoms: dysuria Allergies and Home Medications Allergies Coded Allergies: No Allergy Information Available (Unverified , 02/23/18) Home Medications Azithromycin 250 Mg Tablet, 250 MG PO UD TAKE 2 TABLETS TODAY, THEN TAKE 1 TABLET DAILY FOR 4 MORE DAYS Prescribed by: ROYA DOS SANTOS on 04/08/182119 Cyclobenzaprine HCl 10 Mg Tablet, 10 MG PO Q8H PRN for SPASMS Prescribed by: ANNETTA PATEL on 04/18/18523 Levofloxacin 500 Mg Tablet, 500 MG PO DAILY Prescribed by: ROYA DOS SANTOS on 04/08/182119 Naproxen 500 Mg Tablet, 500 MG PO BID Prescribed by: ANNETTA PATEL on 04/18/18523 Oxycodone HCl/Acetaminophen 1 Each Tablet, 1 TAB PO Q4H PRN for PAIN-MODERATE Prescribed by: GEE CASTILLO on 02/23/18 1533 Patient Home Medication List Home Medication List Reviewed: Yes Review of Systems Review of Systems Constitutional: see HPI EENTM: see HPI Respiratory: no symptoms reported Cardiovascular: no symptoms reported Genitourinary: see HPI, burning, discharge, dysuria, frequency Musculoskeletal: no symptoms reported Skin: no symptoms reported Psychiatric/Neurological: No Symptoms Reported Endocrine: No Symptoms Reported Hematologic/Lymphatic: No Symptoms Reported Past Mfkkeds-Ofdeob-Fkohdn Hx Patient Social History Type Used: Cigarettes 2nd Hand Smoke Exposure: Yes Recent Foreign Travel: No Contact w/Someone Who Travel: No Recent Hopitalizations: Yes (APPENDECTOMY IN FEB OF THIS YEAR) Past Medical History Surgeries: No Appendectomy Respiratory: No Cardiac: No Neurological: No Reproductive Disorders: No Genitourinary: No Gastrointestinal: No Musculoskeletal: No Endocrine: No HEENT: No Cancer: No Psychosocial: No Integumentary: No Physical Exam Vital Signs Capillary Refill : Height, Weight, BMI Height: 5'7.00" Weight: 180lbs. oz. 81.024031qa; BMI Method:Stated General Appearance: WD/WN, no apparent distress HEENT: PERRL/EOMI Neck: non-tender, full range of motion Respiratory: no respiratory distress, no accessory muscle use Neurologic/Psychiatric: alert, normal mood/affect, oriented x 3 Skin: normal color, warm/dry Progress/Results/Core Measures Suspected Sepsis SIRS Temperature: Pulse: Respiratory Rate: Blood Pressure / Mean: Results/Orders My Orders Orders - BEATRICE STEVENSON APRN Neis Angel Dna Urine Test (10/05/18 20:09) Chlamydia Trachomatis Urine (10/05/18 20:09) Ua Culture If Indicated (10/05/18 20:09) Ceftriaxone For Im Use (Rocephin For Im (10/05/18 20:45) Lidocaine 1% Inj 20 Ml (Xylocaine 1% Inj (10/05/18 20:45) Azithromycin Tablet (Zithromax Tablet) (10/05/18 20:45) Phenazopyridine Tablet (Pyridium Tablet) (10/05/18 20:45) Vital Signs/I&O Capillary Refill : Departure Impression Primary Impression: Urethritis Additional Impression: STD (sexually transmitted disease) Disposition: 01 HOME, SELF-CARE Condition: Stable Departure-Patient Inst. Decision time for Depature: 20:36 Referrals: NO,LOCAL PHYSICIAN (PCP/Family) Primary Care Physician Patient Instructions: Chlamydia (DC), Gonorrhea (DC), Urethritis Scripts Doxycycline Hyclate (Doxycycline Hyclate) 100 Mg Tablet 100 MG PO BID, #20 TAB 0 Refills Prov: BEATRICE STEVENSON APRN 10/05/18 BEATRICE STEVENSON APRN October 05, 2018 20:37
[2018-10-05] MEDS ORDERED: LIDOCAINE 1% INJ 20 ML 20 ML VIAL INJ ONE (20:45)
[2018-10-05] MEDS ORDERED: PHENAZOPYRIDINE 100 MG (PYRIDIUM) TABLET PO ONE (20:45)
[2018-10-05] MEDS ORDERED: AZITHROMYCIN 250 MG TAB (ZITHROMAX) PO SCH (20:45)
[2018-10-05] MEDS ORDERED: cefTRIAXone 1,000 MG/2.86 ml vial (IM ONLY) IM SCH (20:45)
[2018-10-05 20:48] LABS: BACTERIA,URINE FEW /HPF; WBC,URINE TNTC /HPF
[2018-10-05 20:55] VITALS: BP 159/95
== END 2018-10-05 20:59 | disposition home or self-care (01) ==
LOC: EDUNIT# 20:07 → ER 20:08
DX: N34.2 Other urethritis (principal); A64 Unspecified sexually transmitted disease; Z90.49 Acquired absence of other specified parts of digestive tract
CPT/HCPCS: 36415; 81000; 87077; 87088; 87185; 87491; 87591; 99284